=== PATIENT | male | born 1990 | race Hispanic/Latino ===

== ENCOUNTER 2018-08-02 02:38 | Emergency (ER) | payer OTHER ==
[2018-08-02 03:04] VITALS: BP 148/82; PULSE 109; RESP 18; TEMP 98; O2SAT 100
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
== END 2018-08-02 03:30 | disposition home or self-care (01) ==
LOC: H.ER 02:38
DX: T14.8XXA Other injury of unspecified body region, initial encounter (principal); Y04.0XXA Assault by unarmed brawl or fight, initial encounter; Y92.89 Other specified places as the place of occurrence of the external cause